=== PATIENT | female | born 1990 | race Caucasian/White ===

== ENCOUNTER → 2022-06-18 | Outpatient (CLI) | payer OTHER ==
[~2022-06-18] MED LIST: ANTIVERT 25MG T25 MG PO; DOC-Q-LACE100 MG PO; DOCUSATE SODIU100 M1 PO; DOCUSATE SODIU100 MG PO; HEMOCYTE324 MG PO; HYDROCODON-ACE1 EAC4 PO; IBUPROFEN600 MG PO; LEVAQUIN TAB 5500 MG PO; NORCO 5-325 TA1 EACH PO; ZOFRAN ODT 4 MG4 MG SL
[2022-06-18 12:53] LABS: RED BLOOD COUNT 3.83 M/UL (4.00-5.10); WHITE BLOOD COUNT 10.8 K/UL (4.5-11.0)
== END ==
LOC: GENOP 12:22
PROVIDERS: Obstetrics & Gynecology
DX: Z01.812 Encounter for preprocedural laboratory examination (principal)
CPT/HCPCS: 36415; 81001; 85025

== ENCOUNTER 2022-06-19 05:16 | Inpatient (IN) | payer OTHER ==
[~2022-06-19] VITALS: Ht 149.9 cm; Wt 82.1 kg
[~2022-06-19 05:16] MED LIST changes: -DOCUSATE SODIU100 MG PO; -HEMOCYTE324 MG PO; -HYDROCODON-ACE1 EAC4 PO
[2022-06-19] MEDS ORDERED: DOCUSATE SODIU100 MG PO (08:02)
[2022-06-19] MEDS ORDERED: HYDROCODON-ACE1 EAC4 PO (08:02)
[2022-06-19] MEDS ORDERED: IBUPROFEN600 MG PO (08:02)
[2022-06-20 05:09] LABS: HEMOGLOBIN 9.9 gm/dl (12.3-15.3)
[2022-06-20] MEDS ORDERED: HEMOCYTE324 MG PO (10:39)
== END 2022-06-20 18:19 | disposition home or self-care (01) | DRG 788 ==
LOC: OB 05:16
PROVIDERS: ADMIT Obstetrics & Gynecology
PROC: 10D00Z1 Extraction of Products of Conception, Low, Open Approach (ICD-10-PCS; principal; 2022-06-19 09:15)
DX: O34.211 Maternal care for low transverse scar from previous cesarean delivery (principal); O99.02 Anemia complicating childbirth; Z37.0 Single live birth; Z3A.39 39 weeks gestation of pregnancy; D64.9 Anemia, unspecified; Z90.49 Acquired absence of other specified parts of digestive tract; Z98.890 Other specified postprocedural states; Z28.311 Partially vaccinated for COVID-19; Z82.49 Family history of ischemic heart disease and other diseases of the circulatory system; Z83.3 Family history of diabetes mellitus; Z80.0 Family history of malignant neoplasm of digestive organs; Z80.8 Family history of malignant neoplasm of other organs or systems; Z80.41 Family history of malignant neoplasm of ovary
CPT/HCPCS: 36415; 82800; 85014; 85018; C9113; J0690; J1885; J2274; J2370; J2405; J2590; J3010